=== PATIENT | male | born 1975 | race Caucasian/White ===

== ENCOUNTER 2019-04-12 09:43 | Emergency (ER) | payer BC, SELFPAY ==
[2019-04-12 09:47] VITALS: BP 157/104; PULSE 86; RESP 20; TEMP 36.8; O2SAT 97; BMI 35.4
[2019-04-12 10:00] VITALS: BP 137/90; PULSE 82; RESP 16; O2SAT 96
--- NOTE | 2019-04-12 10:00 | ED_ITS ---
HPI - Chest Pain General Chief Complaint: Chest Pain Stated Complaint: severe pains L side going to the back Time Seen by Provider: 04/12/19 09:55 Source: patient Mode of arrival: Family Vehicle Limitations: no limitations History of Present Illness HPI narrative: Patient is a 43-year-old male who presents with left-sided rib pain ongoing for the last 6 days. 7 days ago he was [place] he didn't think he injured himself however the following day he did noticed some discomfort. It seemed to be worse with movement. As the days have gone on it has progressively gotten a little bit worse and moved around. He denies any cough fevers sweats or chills. He was only able to lie on his back last night to relieve the pain. He says pain is fairly constant. MD complaint: chest pain Onset (ago): day(s) (6) Duration: constant Related Data Home Medications Medication Instructions Recorded Confirmed [id number] K 1 tab PO 04/12/19 [Adults Multivitamin] omeprazole 20 mg PO DAILY 04/12/19 04/12/19 Previous Rx's Medication Instructions Recorded lidocaine 1 patch TOP DAILY PRN #15 each 04/12/19 Allergies Allergy/AdvReac Type Severity Reaction Status Date / Time No Known Drug Allergies Allergy Verified 04/12/19 09:58 Review of Systems Review of Systems Narrative: GENERAL: Denies chills, fatigue, malaise, fever, sweats, travel HEENT: Denies sinus pain, ear pain, sore throat, difficulty swallowing, neck pain RESPIRATORY: Denies dyspnea, cough, wheezing, hemoptysis, sputum. CARDIOVASCULAR: See HPI GASTROINTESTINAL: Denies nausea, vomiting, abdominal pain, diarrhea, constipation, melena. : Denies dysuria, frequency, incontinence, hematuria, urinary retention, flank pain. MUSCULOSKELETAL: Denies weakness, joint pain, or bony pain SKIN: No rash, no erythema, no pruritus NEUROLOGIC: Denies weakness, dizziness, headache, numbness, change in speech, confusion PSYCHIATRIC: No concerning psychosocial issues. 12 point review of systems is negative except for those stated above and HPI Patient History Medical History GERD (gastroesophageal reflux disease) (Acute) Social History (Reviewed 01/18/20 @ 10:09 by MARIANO Diana Smoking Status: Never smoker Smoking Status: Never smoker alcohol intake frequency: 3 or more drinks per day Substance Use Type: does not use Exam Initial Vital Signs Initial Vital Signs: Vital Signs Temperature 98.2 F 04/12/19 09:47 Pulse Rate 86 04/12/19 09:47 Respiratory Rate 20 04/12/19 09:47 Blood Pressure 157/104 H 04/12/19 09:47 Pulse Oximetry 97 04/12/19 09:47 GENERAL: Well-appearing, well-nourished and in no acute distress. HEENT: Head atraumatic,EOMI, pupils reactive, face symmetric CARDIOVASCULAR: Regular rate and rhythm without murmurs, rubs or gallops. Pain left lateral rib 6 and 7 area. No deformity. No paradoxical movement no rash. RESPIRATORY: Breath sounds equal bilaterally, no wheezes rales or rhonchi. ABDOMEN: Soft, nontender. Normoactive bowel sounds all 4 quadrants. No guardin g or rebound. EXTREMITIES: Normal range of motion, no clubbing or edema. Neurovascularly intact NEUROLOGICAL: Alert and oriented x4.Normal gait and speech. Cranial nerves II through XII grossly intact. SKIN: Warm, dry, no laceration, no petechiae, no rashes or lesions. Course Orders Ordered: ED Orders 04/12/19 09:59 EKG-12 Lead Stat 04/12/19 10:06 XR ribs LT min 3V w CXR1V Stat 04/12/19 10:17 Complete Blood Count AUTO DIFF Stat Comprehensive Metabolic Panel Stat Lipase Stat Partial Thromboplastin Time Stat Prothrombin Time INR Stat Troponin & CK Cardiac Panel Stat Discontinued Medications Ketorolac Tromethamine (Toradol) 30 mg IV NOW ONE Stop: 04/12/19 10:07 Last Admin: 04/12/19 10:26 Dose: 30 mg Documented by: IVAN Vital Signs Vital signs: Vital Signs - 8 hr 04/12/19 10:30 04/12/19 11:30 Pulse Rate 83 79 Respiratory Rate 26 H 18 Blood Pressure [Left Arm] 137/92 H 145/100 H Pulse Oximetry 95 97 MDM - Chest Pain Lab Data Attestation: I reviewed the patient's lab results. Result diagrams: 04/12/19 10:17 04/12/19 10:17 Labs: Lab Results 0104/12/19 04/12/19 Range/Units 10:17 10:17 10:17 WBC 4.9 (4.5-11.0) X10^3/uL RBC 4.88 (4.5-5.9) X10^6/uL Hgb 14.7 (13.5-17.5) g/dL Hct 42.7 (41-53) % MCV 87.5 (80-100) fL MCH 30.1 (26-34) PG MCHC 34.4 (30-36) % RDW 12.5 (11.6-14.8) % Plt Count 166 (150-400) X10^3/uL Neut % (Auto) 63.8 (50-75) % Lymph % (Auto) 28.5 (25-40) % Churchill % (Auto) 6.6 (3-14) % Eos % (Auto) 0.5 L (2-4) % Baso % (Auto) 0.6 (0-2) % Neut # (Auto) 3200 (4839-9212) /uL Lymph # (Auto) 1400 (4253-8214) /uL Churchill # (Auto) 300 (0-900) /uL Eos # (Auto) 0 (0-450) /uL Baso # (Auto) 0 (0-100) /uL PT 13.1 H (10.1-12.7) SECONDS INR 1.1 (0.9-1.3) APTT 34 (26.4-36.2) SECONDS Sodium 133 L (137-145) mmol/L Potassium 4.3 (3.4-5.1) mmol/L Chloride 96 L (98-107) mmol/L Carbon Dioxide 24 (22-32) mmol/L BUN 13 (9-20) mg/dL Creatinine 0.60 L (0.66-1.25) mg/dL Estimated GFR > 60.0 (>60) mL/min BUN/Creatinine Ratio 21.7 (6-22) Glucose 430 H (70-100) mg/dL Calcium 9.5 (8.4-10.2) mg/dL Total Bilirubin 0.7 (0.2-1.3) mg/dL AST 141 H (17-59) IU/L ALT 137 H (<50) IU/L Alkaline Phosphatase 167 H (38-126) U/L Total Creatine Kinase 31 L (55-170) U/L CK-MB (CK-2) TNP CK-MB (CK-2) Rel Index TNP Troponin I < 0.012 (0.01-0.034) ng/mL Total Protein 7.6 (6.3-8.2) g/dL Albumin 4.3 (3.5-5.0) g/dL Globulin 3.3 (1.7-4.1) g/dL Albumin/Globulin Ratio 1.3 (1.0-2.8) Lipase 196 (23-300) U/L Imaging Data Chest x-ray: Attestation: I personally reviewed and interpreted this imaging study as follows: My Impression: No Fracture Radiologist's Impression: PROCEDURE: XR RIBS LT MIN 3V W CXR1V INDICATIONS: pain TECHNIQUE: 2 views of the left ribs were acquired, along with a single view chest. COMPARISON: [facility], CHEST 2 VIEW, 05/16/2016, 8:33. FINDINGS: Surgical changes and devices: None. Bones and chest wall: There is a minimally displaced left lateral 8th rib fracture. No suspicious lytic or blastic lesions are seen. Lungs and pleura: No pleural effusions or pneumothorax. Lungs appear clear. Mediastinum: Mediastinal contours appear normal. Heart size is normal. IMPRESSION: Minimally displaced left lateral 8th rib fracture. No pneumothorax is seen. Dictated by: Farhat Langford M.D. on 04/12/2019 at 10:49 ECG Data Attestation: I personally reviewed and interpreted this ECG as follows: Prior ECG tracings: not available for review Interpretation: Normal sinus rhythm rate 85 p.r. interval 143 QRS [address] elevation depression or T-wave inversion is MDM Narrative Medical decision making narrative: I reviewed x-ray myself I did not appreciate fracture and patient was discharged. He was given lidocaine patches and recommended supportive care for costochondritis. Radiology did read x-ray and reported and 8 rib fracture. I've called and spoken to patient and given him the results. Treatment remains the same his lidocaine patches should help. I discussed with him if he should need any stronger pain medication that he needs to go to his PCP. Discharge Plan Departure Patient Disposition: Home Clinical Impression: Costochondritis, Elevated liver enzymes, Closed rib fracture Discharge Date/Time: 04/12/19 11:54 Activity Restrictions/Additional Instructions: *You have been diagnosed with costochondritis elevated liver enzymes *What to do: The this seems to be musculoskeletal at this time. Recommend heat or ice along with supportive care. Also your liver enzymes should be rechecked with her primary care provider. Your liver is located on the right so is unlikely to be causing her symptoms the left *Continue to take medications as directed Ibuprofen 800 mg every 8 hours if needed for [id number] or Naproxen 500 mg every 12 hours if needed Lidocaine patch for 12 hours at the area of pain *Follow up with your primary care provider in 2-3 days *Return to ER if you should have increase in pain, shortness of breath [or] any new, worsening or concerning symptoms Prescriptions: New lidocaine 5 % adhesive patch,medicated 1 patch TOP DAILY PRN (Reason: pain, moderate) Qty: 15 RF: 0 No Action omeprazole 20 mg PO DAILY RF: 0 Adults Multivitamin 18 mg iron-400 mcg-25 mcg Tablet 1 tab PO RF: 0 Referrals: Sheldon Brewer MD [Primary Care Provider] -
--- NOTE | 2019-04-12 10:06 | DI.RAD.S_ITS ---
PROCEDURE: XR RIBS LT MIN 3V W CXR1V INDICATIONS: pain TECHNIQUE: 2 views of the left ribs were acquired, along with a single view chest. COMPARISON: [facility], , CHEST 2 VIEW, 05/16/2016, 8:33. FINDINGS: Surgical changes and devices: None. Bones and chest wall: There is a minimally displaced left lateral 8th rib fracture. No suspicious lytic or blastic lesions are seen. Lungs and pleura: No pleural effusions or pneumothorax. Lungs appear clear. Mediastinum: Mediastinal contours appear normal. Heart size is normal. IMPRESSION: Minimally displaced left lateral 8th rib fracture. No pneumothorax is seen. Dictated by: Farhat Langford M.D. on 04/12/2019 at 10:49 Approved by: Farhat Langford M.D. on 04/12/2019 at 10:51
[2019-04-12 10:24] LABS: Add Manual Diff / Slide Review NO; Basophils Absolute Auto 0 /uL (0-100); Basophils Percent Auto 0.6 % (0-2); Eosinophils Absolute Auto 0 /uL (0-450); Eosinophils Percent Auto 0.5 % (2-4); Hematocrit 42.7 % (41-53); Hemoglobin 14.7 g/dL (13.5-17.5); Lymphocytes Absolute Auto 1400 /uL (1100-4500); Lymphocytes Percent Auto 28.5 % (25-40); Mean Corpuscular HGB Conc 34.4 % (30-36); Mean Corpuscular Hemoglobin 30.1 PG (26-34); Mean Corpuscular Volume 87.5 fL (80-100); Monocytes Absolute Auto 300 /uL (0-900); Monocytes Percent Auto 6.6 % (3-14); Neutrophils Absolute Auto 3200 /uL (1500-7000); Neutrophils Percent Auto 63.8 % (50-75); Platelet Count 166 X10^3/uL (150-400); Red Blood Cell Count 4.88 X10^6/uL (4.5-5.9); Red Cell Distribution Width 12.5 % (11.6-14.8); White Blood Cell Count 4.9 X10^3/uL (4.5-11.0)
[2019-04-12] MEDS: KETOROLAC 60 MG/2 ML VIAL 30 MG IV (10:26)
[2019-04-12 10:30] VITALS: BP 137/92; PULSE 83; RESP 26; O2SAT 95
[2019-04-12 10:36] LABS: INR 1.1 (0.9-1.3); Prothrombin Time 13.1 SECONDS (10.1-12.7)
[2019-04-12 10:38] LABS: Alanine Aminotransferase 137 IU/L (<50); Albumin 4.3 g/dL (3.5-5.0); Albumin Globulin Ratio 1.3 (1.0-2.8); Alkaline Phosphatase 167 U/L (38-126); Aspartate Aminotransferase 141 IU/L (17-59); BUN Creatinine Ratio 21.7 (6-22); Bilirubin Total 0.7 mg/dL (0.2-1.3); Blood Urea Nitrogen 13 mg/dL (9-20); Calcium 9.5 mg/dL (8.4-10.2); Carbon Dioxide 24 mmol/L (22-32); Chloride 96 mmol/L (98-107); Creatine Kinase 31 U/L (55-170); Estimated Glomerular Filt Rate > 60.0 mL/min (>60); Globulin 3.3 g/dL (1.7-4.1); Glucose 430 mg/dL (70-100); HEMOLYSIS < 15 (0-50); Lipase 196 U/L (23-300); PTT Partial Thromboplastin Tim 34 SECONDS (26.4-36.2); Potassium 4.3 mmol/L (3.4-5.1); Sodium 133 mmol/L (137-145); Total Protein 7.6 g/dL (6.3-8.2)
[2019-04-12 10:49] LABS: Troponin I < 0.012 ng/mL (0.01-0.034)
[2019-04-12 11:30] VITALS: BP 145/100; PULSE 79; RESP 18; O2SAT 97
== END 2019-04-12 11:54 | disposition home or self-care (01) ==
PROVIDERS: Emergency Provider Emergency Medicine; Family Provider Family Medicine; PCP Family Medicine
DX: M94.0 Chondrocostal junction syndrome [Tietze] (principal); R74.8 Abnormal levels of other serum enzymes; S22.39XA Fracture of one rib, unspecified side, initial encounter for closed fracture; R07.9 Chest pain, unspecified
CPT/HCPCS: 36415; 71101; 80053; 82550; 83690; 84484; 85025; 85610; 85730; 93005; 96374; 99284; 99285; J1885

== ENCOUNTER → 2021-03-15 07:04 | Outpatient (CLI) | payer OTHER, SELFPAY ==
[2021-03-15 09:20] LABS: Testosterone 228 ng/dL (132-813)
[2021-03-15 22:47] LABS: Sex Hormone Binding Globulin 39.6 nmol/L (16.5-55.9)
[2021-03-23 09:36] LABS: Percent Free Testosterone 2.13 % (1.50-4.20); Testosterone Free 6.32 ng/dL (5.00-21.00); Testosterone Total 296.6 ng/dL (264.0-916.0)
== END ==
PROVIDERS: Family Provider Family Medicine; PCP Family Medicine; Referring Provider Specialist; Visit Provider Specialist
DX: Z85.47 Personal history of malignant neoplasm of testis (principal); C61 Malignant neoplasm of prostate; C62.12 Malignant neoplasm of descended left testis
CPT/HCPCS: 36415; 84270; 84402; 84403

== ENCOUNTER → 2021-04-21 07:28 | Outpatient (CLI) | payer OTHER, SELFPAY ==
[2021-04-21 09:13] LABS: Prostate Specific Antigen 1.84 ng/mL (0.10-4.00)
== END ==
PROVIDERS: Family Provider Family Medicine; PCP Family Medicine; Referring Provider Specialist; Visit Provider Specialist
DX: R97.20 Elevated prostate specific antigen [PSA] (principal)
CPT/HCPCS: 36415; 84153